=== PATIENT | female | born 1995 | race Caucasian/White ===

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

== ENCOUNTER 2017-09-24 09:27 | Emergency (ER) | payer BC, OTHER ==
[2017-09-24 10:49] VITALS: BP 102/63
--- NOTE | 2017-09-24 11:01 | UC ---
FLU HPI - HPI Summary HPI Summary: 1 DAY OF CHILLS, MYALGIAS, LAU. HAS MILD NASAL CONGESTION AND ST, DENIES COUGH OR FEVER. NO FLU SHOT THIS SEASON. - History of Current Complaint Chief Complaint: UCGeneralIllness Stated Complaint: FEVER/LAU Time Seen by Provider: 09/24/17 10:47 Hx Obtained From: Patient Hx Last Menstrual Period: unknown, iud Onset/Duration: Gradual Onset, Lasting Hours Severity Currently: Moderate Severity Initially: Moderate Pain Intensity: 6 Pain Scale Used: 0-10 Numeric Associated Signs & Symptoms: Positive: Myalgia, Sore Throat, Nasal Congestion, Headache. Negative: Fever, Cough - Allergy/Home Medications Allergies/Adverse Reactions: Allergies Allergy/AdvReac Type Severity Reaction Status Date / Time No Known Allergies Allergy Verified 09/24/17 10:46 PMH/Surg Hx/FS Hx/Imm Hx Previously Healthy: Yes - Surgical History Surgical History: Yes Surgery Procedure, Year, and Place: JAN 14 2016 - Family History Known Family History: Positive: Hypertension - Social History Alcohol Use: None Substance Use Type: None Smoking Status (MU): Never Smoked Tobacco Have You Smoked in the Last Year: No - Immunization History Most Recent Influenza Vaccination: declined Most Recent Tetanus Shot: 10/22/15 Most Recent Pneumonia Vaccination: never Vaccination Up to Date: Yes Review of Systems Constitutional: Chills, Fatigue ENT: Sore Throat, Nasal Discharge Respiratory: Negative Cardiovascular: Negative Gastrointestinal: Negative Musculoskeletal: Myalgia Neurological: Headache All Other Systems Reviewed And Are Negative: Yes Physical Exam Triage Information Reviewed: Yes Appearance: Well-Appearing, No Pain Distress, Well-Nourished Vital Signs: Initial Vital Signs Temp 98.3 F 09/24/17 10:44 Pulse 78 09/24/17 10:44 Resp 16 09/24/17 10:44 BP 102/63 09/24/17 10:44 Pulse Ox 98 09/24/17 10:44 Vital Signs Reviewed: Yes Eyes: Positive: Conjunctiva Clear ENT: Positive: Hearing grossly normal, Pharynx normal, TMs normal Neck: Positive: Supple, Nontender, Enlarged Nodes @ - SHOTTY NON TENDER SPFL CERVICAL LAD Respiratory Exam: Normal Cardiovascular Exam: Normal Abdomen Description: Positive: Nontender, Soft Musculoskeletal: Positive: No Edema Neurological: Positive: Alert Psychological: Positive: Normal Response To Family, Age Appropriate Behavior Skin: Negative: rashes Diagnostics - Laboratory Diagnostic Studies Completed/Ordered: INFLUENZA A POSITIVE Flu Course/Dx - Differential Dx/Diagnosis Provider Diagnoses: INFLUENZA A Discharge - Discharge Plan Condition: Stable Disposition: HOME Prescriptions: Oseltamivir CAP* [Tamiflu CAP*] 75 mg PO BID #10 cap Patient Education Materials: Influenza (ED) Forms: *Work Release Referrals: Juliana Milan MD [Primary Care Provider] - If Needed Additional Instructions: SWAB POSITIVE FOR INFLUENZA A. TAMIFLU TWICE DAILY FOR 5 DAYS. OTC MEDS NEEDED FOR FEVER, BODY ACHES. STAY WELL HYDRATED AND RESTED. SEEK FOLLOW-UP IF YOU ARE NOT IMPROVING EXPECTED.
== END 2017-09-24 11:41 | disposition home or self-care (01) ==
LOC: UCCORT 09:27
DX: J09.X2 Influenza due to identified novel influenza A virus with other respiratory manifestations (principal)
CPT/HCPCS: 87502; 99212; G0463

== ENCOUNTER 2017-12-18 19:14 | Emergency (ER) | payer SELFPAY ==
[2017-12-18 20:11] VITALS: BP 100/67
--- NOTE | 2017-12-18 21:07 | UC ---
Complaint Female HPI - HPI Summary HPI Summary: 22 y/o female presents to the urgent care c/o itchiness in her groin area w/ a mild vaginal discharge for the past 2 weeks. Pt is very concerned since she had unprotected sexual intercourse lately. She is "feeling paranoid about it ".LMP: 02/2017 w/ the IUD. She has Hx of chlamydia in 08/2017 which resolved w/ treatment. Pt denies fever, pelvic pain, lower back pain, urinary symptoms. Pt has not taking anything to alleviate symptoms. - History Of Current Complaint Chief Complaint: UCGU Stated Complaint: PERSONAL Time Seen by Provider: 12/18/17 21:02 Hx Obtained From: Patient Hx Last Menstrual Period: no period - states mirena Onset/Duration: Gradual Onset, Lasting Weeks - 2 weeks, Still Present, Worse Since - yesterday Timing: Intermittent, Lasting Seconds Severity Initially: Mild Severity Currently: Mild Pain Intensity: 4 Pain Scale Used: 0-10 Numeric Character: Burning Aggravating Factor(s): Lucien, Urination Alleviating Factor(s): Nothing Associated Signs And Symptoms: Positive: Vaginal Discharge. Negative: Fever, Back Pain, Genital Swelling, Genital Blisters Related Hx: Prior STD Hx - chlamydia in 08/2017 - Risk Factors Ectopic Risk Factor: Negative - Allergies/Home Medications Allergies/Adverse Reactions: Allergies Allergy/AdvReac Type Severity Reaction Status Date / Time No Known Allergies Allergy Verified 12/18/17 20:02 Home Medications: Home Medications Ibuprofen TAB* [Motrin TAB* 800 MG] 800 mg PO ONCE 12/18/17 [History Confirmed 12/18/17] PMH/Surg Hx/FS Hx/Imm Hx - Additional Past Medical History Additional PMH: Hx of chlamydia Previously Healthy: Yes - Pt denies PMHX - Surgical History Surgical History: Yes Surgery Procedure, Year, and Place: JAN 14 2016 - Family History Known Family History: Positive: Hypertension, Diabetes - Social History Occupation: Employed Full-time Lives: With Family Alcohol Use: None Substance Use Type: None Smoking Status (MU): Never Smoked Tobacco Have You Smoked in the Last Year: No - Immunization History Most Recent Influenza Vaccination: declined Most Recent Tetanus Shot: 10/22/15 Most Recent Pneumonia Vaccination: never Vaccination Up to Date: Yes Review of Systems Constitutional: Negative Skin: Negative Eyes: Negative ENT: Negative Respiratory: Negative Cardiovascular: Negative Gastrointestinal: Negative Genitourinary: Vaginal/Penile Itching, Vaginal/Penile Discharge Motor: Negative Neurovascular: Negative Musculoskeletal: Negative Neurological: Negative Psychological: Negative Is Patient Immunocompromised?: No All Other Systems Reviewed And Are Negative: Yes Physical Exam - Summary Physical Exam Summary: Vital signs: reviewed General: well developed, well nourished female adolescent sitting in the examining table w/o any acute distress. Head: Normocephalic, no lesions. Eyes: PERRLA, EOM's full, conjunctiva clear, fundi grossly normal. Ears: EAC's clear, TM's normal. Nose: Mucosa normal, no obstruction. Throat: Clear, no exudates, no lesions. Neck: Supple, no masses, no thyromegaly, no bruits. Chest: Lungs clear, no rales, no rhonchi, no wheezes. Heart: RR, no murmurs, no rubs, no gallops. Abdomen: Soft, no tenderness, no masses, BS normal. : Normal, no lesions, no discharge, no hernias noted. Pelvic: I was assited by Nurse Agata. External genitalia within normal limits. There is no lesions there is no masses noted. Speculum exam: The vaginal emery are within normal limits w/ white vaginal discharge and fishy odor, no the lesions or rashes. The cervix is closed with the string of IUD coming out and in place, mild erythema aorund cervical OS. There is no CMT's, and no adnexal masses. Sample sent to Lab for G/C and Affirm panel. Rectal: No lesions, no hemorrhoids, Back: Normal curvature, no tenderness. Extremities: FROM, no deformities, no edema, no erythema. Neuro: Physiological, no localizing findings. Skin: Normal, no rashes, no lesions noted. Triage Information Reviewed: Yes Vital Signs: Initial Vital Signs Temp 98.6 F 12/18/17 20:04 Pulse 64 12/18/17 20:04 Resp 20 12/18/17 20:04 BP 100/67 12/18/17 20:04 Pulse Ox 100 12/18/17 20:04 Complaint Female Dx - Course Course Of Treatment: 22 y/o female presents to the urgent care c/o itchiness in her groin area w/ a mild vaginal discharge for the past 2 weeks. Pt is very concerned since she had unprotected sexual intercourse lately. She is "feeling paranoid about it".LMP: 02/2017 w/ the IUD. She has Hx of chlamydia in 08/2017 which resolved w/ treatment. Pt denies fever, pelvic pain, lower back pain, urinary symptoms. Pt has not taking anything to alleviate symptoms.Hx obtained. Pt with Bacterial vaginosis on pelvic examination. UA ordered, result :trace blood. test: negative.Pt received Prophylactic treatment for GC /chlamydia. Pt tolerated well medications. Pt educated on STD's and the importance to use condoms. Pt Rx Metronidazole vaginal cream. Pt Advised to f/ u with [facility] for PAP. Specimen were sent to lab, Advised she will be notified if any abnormal result from lab. Pt understood and agreed with plan of care. - Differential Dx/Diagnosis Differential Diagnosis/HQI/PQRI: Cervicitis, Pelvic Inflammatory Disease, , Renal Colic, Sexually Transmitted Disease, Ureteral Stone, Urinary Tract Infection Provider Diagnoses: 1- Bacterail vaginosis. 2- Screening for STD's Discharge - Sign-Out/Discharge Documenting (check all that apply): Discharge - Discharge Plan Condition: Stable Disposition: HOME Prescriptions: metroNIDAZOLE VAGINAL 0.75%* 1 applic VAGINAL BEDTIME #1 angela Patient Education Materials: Bacterial Vaginosis (ED), Sexually Transmitted Diseases (ED) Referrals: Juliana Milan MD [Primary Care Provider] - 3 Days Additional Instructions: 1-Please f/u with [facility] for a PAP as soon as possible. 2- Please take medications as directed. Avoid sexual intercourse while applying medication. Please encourage the use of condoms. 3- Specimen were sent to lab, if anything abnormal you will receive a call from us for further treatment. You were treated today prophylactically for STD's 4-If not improvement of symptoms please return to the urgent care or f/u with your [facility] for further treatment - Billing Disposition and Condition Condition: STABLE Disposition: HOME
[2017-12-18] MEDS ORDERED: cefTRIAXone VIAL(*) 250 MG VIAL IM ONE (21:22)
[2017-12-18] MEDS ORDERED: Azithromycin TAB* 250 MG PO ONE (21:22)
[2017-12-18] MEDS ORDERED: Lidocaine 1% MPF* 2 ML VIAL ONE (21:37)
--- NOTE | 2017-12-20 15:09 | UC ---
- Progress Note Progress Note: Pt with + Gardnerella Pt prescribed Flagyl No change Gusj 12/20/2017 Discharge - Sign-Out/Discharge Documenting (check all that apply): Discharge/Admit/Transfer - Discharge Plan Condition: Stable Disposition: HOME Prescriptions: metroNIDAZOLE VAGINAL 0.75%* 1 applic VAGINAL BEDTIME #1 angela Patient Education Materials: Bacterial Vaginosis (ED), Sexually Transmitted Diseases (ED) Referrals: Juliana Milan MD [Primary Care Provider] - 3 Days Additional Instructions: 1-Please f/u with INPATIENT NURSING AIDE for a PAP as soon as possible. 2- Please take medications as directed. Avoid sexual intercourse while applying medication. Please encourage the use of condoms. 3- Specimen were sent to lab, if anything abnormal you will receive a call from us for further treatment. You were treated today prophylactically for STD's 4-If not improvement of symptoms please return to the urgent care or f/u with your INPATIENT NURSING AIDE for further treatment - Billing Disposition and Condition Condition: STABLE Disposition: HOME
== END 2017-12-18 22:04 | disposition home or self-care (01) ==
LOC: UCEAST 19:14
DX: N76.0 Acute vaginitis (principal); Z32.02 Encounter for pregnancy test, result negative; Z11.3 Encounter for screening for infections with a predominantly sexual mode of transmission; Z11.4 Encounter for screening for human immunodeficiency virus [HIV]; Z86.19 Personal history of other infectious and parasitic diseases
CPT/HCPCS: 36415; 81003; 81025; 84702; 86703; 87480; 87491; 87510; 87591; 87661; 96372; 99213; A9270-GY; G0463; J0696

== ENCOUNTER 2018-03-03 09:21 | Emergency (ER) | payer OTHER ==
[2018-03-03 10:20] VITALS: BP 112/84
[2018-03-03] MEDS ORDERED: cefTRIAXone VIAL(*) 250 MG VIAL IM ONE (11:08)
[2018-03-03] MEDS ORDERED: Azithromycin TAB* 250 MG PO ONE (11:08)
[2018-03-03] MEDS ORDERED: Lidocaine 1%* 5 ML VIAL ONE (11:15)
--- NOTE | 2018-03-03 12:05 | UC ---
Sonido Martinez Rebecca, scribed for Rigo Azevedo MD on 03/03/18 at 1033 . Complaint Female HPI - HPI Summary HPI Summary: Pt is a 22 y/o F who presents to [facility] c/o vaginal discharge and malodor. Discharge has been present for about 2 weeks with malodor starting yesterday. Additionally c/o mild dysuria and notes vaginal pruritis which is now resolved. Treated symptoms with MoniStat 1 week ago which slightly helped. Denies hematuria, N/V, back pain, fever. Is sexually active with no new partners, PMHx chlamydia which was treated. Has had yeast infections and BV in the past, with current symptoms being similar to those she had with BV. - History Of Current Complaint Chief Complaint: UCGU Stated Complaint: PERSONAL ISSUE Time Seen by Provider: 03/03/18 10:25 Hx Obtained From: Patient Hx Last Menstrual Period: pt has an IUD and states not getting a menses Onset/Duration: Lasting Weeks - 2 weeks, Still Present Severity Currently: None Pain Intensity: 0 Pain Scale Used: 0-10 Numeric Aggravating Factor(s): Nothing Alleviating Factor(s): Nothing Associated Signs And Symptoms: Positive: Vaginal Discharge. Negative: Fever, Back Pain Related Hx: Similar Episode/Dx as: - Dx of BV - Allergies/Home Medications Allergies/Adverse Reactions: Allergies Allergy/AdvReac Type Severity Reaction Status Date / Time No Known Allergies Allergy Verified 03/03/18 10:20 Home Medications: Home Medications Aviane 1 tab PO DAILY 03/03/18 [History Confirmed 03/03/18] PMH/Surg Hx/FS Hx/Imm Hx - Additional Past Medical History Additional PMH: NEGATIVE PMHx: DM Psychological History: Depression - Surgical History Surgical History: Yes Surgery Procedure, Year, and Place: - Family History Known Family History: Positive: Hypertension, Diabetes - Social History Alcohol Use: None Substance Use Type: None Smoking Status (MU): Never Smoked Tobacco Have You Smoked in the Last Year: No - Immunization History Most Recent Influenza Vaccination: declined Most Recent Tetanus Shot: 10/22/15 Most Recent Pneumonia Vaccination: never Vaccination Up to Date: Yes Review of Systems Constitutional: Negative Skin: Negative Eyes: Negative ENT: Negative Respiratory: Negative Cardiovascular: Negative Gastrointestinal: Negative Genitourinary: Dysuria, Vaginal/Penile Itching - Resolved, Vaginal/Penile Discharge - Discharge, Other - Vaginal malodor Motor: Negative Neurovascular: Negative Musculoskeletal: Negative Neurological: Negative Psychological: Negative All Other Systems Reviewed And Are Negative: Yes - Comments Additional Review of Systems Comments: NEGATIVE: Hematuria, N/V, back pain, fever Physical Exam - Summary Physical Exam Summary: Appearance: Well appearing, no pain distress Skin: warm, dry, reflects adequate perfusion Head/face: normal Eyes: EOMI, RENNY ENT: normal Neck: supple, non-tender Respiratory: CTA, breath sounds present Cardiovascular: RRR, pulses symmetrical Abdomen: non-tender, soft Bowel Sounds: present Musculoskeletal: normal, strength/ROM intact Neuro: normal, sensory motor intact, A&Ox3 Pelvic: no external lesions, IUD wires present, light white discharge with no yellowing Scribe was superintendent automotive for pelvic examination. Triage Information Reviewed: Yes Vital Signs: Initial Vital Signs Temp 98.2 F 03/03/18 10:12 Pulse 64 03/03/18 10:12 Resp 16 03/03/18 10:12 BP 112/84 03/03/18 10:12 Pulse Ox 100 03/03/18 10:12 Vital Signs Reviewed: Yes Complaint Female Dx - Course Course Of Treatment: Vaginal discharge and itching in a sexually active female with history of STDs in the past. Discharges yellow-white in nature. She has no cervical motion tenderness or external lesions. Testing for GC/chlamydia, Trichomonas, yeast and BV were all performed. Treated prophylactically for GC/ chlamydia. - Differential Dx/Diagnosis Provider Diagnoses: Vaginitis Discharge - Sign-Out/Discharge Documenting (check all that apply): Discharge/Admit/Transfer - Discharge - Discharge Plan Condition: Good Disposition: HOME Patient Education Materials: Vaginitis (ED) Referrals: Juliana Milan MD [Primary Care Provider] - Additional Instructions: Testing will take about 4 days to come back. We will call you with the results. If he does not hear from us you can call. Return with fever, belly pain, new symptoms or other concerns. Avoid sexual intercourse for one week or until instructed otherwise. - Billing Disposition and Condition Condition: GOOD Disposition: Home The documentation as recorded by the Sonido bartlett Rebecca accurately reflects the service I personally performed and the decisions made by me, Rigo Azevedo MD.
== END 2018-03-03 11:40 | disposition home or self-care (01) ==
LOC: UCEAST 09:21
DX: N76.0 Acute vaginitis (principal); R30.0 Dysuria; Z97.5 Presence of (intrauterine) contraceptive device; F32.9 Major depressive disorder, single episode, unspecified; Z82.49 Family history of ischemic heart disease and other diseases of the circulatory system; Z83.3 Family history of diabetes mellitus
CPT/HCPCS: 87480; 87491; 87510; 87591; 87661; 96372; 99212; A9270-GY; G0463; J0696

== ENCOUNTER 2019-01-15 14:24 | Emergency (ER) | payer SELFPAY ==
--- NOTE | 2019-01-15 14:34 | UC ---
Shortness of Breath HPI - HPI Summary HPI Summary: Patient is a 23year old female, who present today to the urgent care with intermittent shortness of breath for past 2 weeks. She reports that she feels a pressure-like sensation and finds it difficult to breathe in and please out, last a few minutes and occurs almost daily. She has been having this similar episodes over few years now and it's much worse for the past 2 weeks. She does have a history of anxiety and depression and sometimes feels it could be from her anxiety. She has been stressed at work and in the process of switching jobs.. She has been on antianxiety medications but since it did not help stop and is not currently taking any medications. She has an appointment for that with her primary care doctor tomorrow. She also reports noticing a painful lump the right lower neck area for past 1 week, has some discomfort with swallowing food. She denies any changes in appetite, weight loss and feeling hot or cold. No sick contacts . Denies any fever, chills, cough, chest pain or shortness of breath . No diaphoresis. Denies any abdominal pain , nausea or vomiting , diarrhea or constipation. She does not have any shortness of breath right now and wants to get evaluated - History of Current Complaint Stated Complaint: SHORTNESS OF BREATH Time Seen by Provider: 01/15/19 14:30 Hx Obtained From: Patient Hx Last Menstrual Period: pt has an IUD and states not getting a menses ?: No - Allergy/Home Medications Allergies/Adverse Reactions: Allergies Allergy/AdvReac Type Severity Reaction Status Date / Time No Known Allergies Allergy Verified 01/15/19 14:47 PMH/Surg Hx/FS Hx/Imm Hx - Additional Past Medical History Additional PMH: Past Medical History : anxiety/depression, not on any meds Past Surgical History: Family History : noncontributory Social History : Occasional alcohol, non smoker, no drug use. works at [employer] and at [employer]. Previously Healthy: Yes - Surgical History Surgical History: Yes Surgery Procedure, Year, and Place: - Family History Known Family History: Positive: Hypertension, Diabetes - Social History Alcohol Use: None Substance Use Type: None Smoking Status (MU): Never Smoked Tobacco Have You Smoked in the Last Year: No - Immunization History Most Recent Influenza Vaccination: declined Most Recent Tetanus Shot: 10/22/15 Most Recent Pneumonia Vaccination: never Vaccination Up to Date: Yes Review of Systems All Other Systems Reviewed And Are Negative: Yes Constitutional: Positive: Negative Skin: Positive: Negative Eyes: Positive: Negative ENT: Positive: Other - lump in the right lower neck. Negative: Sore Throat, Ear Ache Respiratory: Positive: Shortness Of Breath. Negative: Cough Cardiovascular: Positive: Negative. Negative: Chest Pain Gastrointestinal: Positive: Negative Genitourinary: Positive: Negative Motor: Positive: Negative Neurovascular: Positive: Negative Musculoskeletal: Positive: Negative Neurological: Positive: Negative Psychological: Positive: Negative Is Patient Immunocompromised?: No Physical Exam - Summary Physical Exam Summary: Physical Exam: Const: Appears well. No signs of apparent distress present. Alert and oriented x 3. Musculo: Walks with a normal gait. Head/Face: Atraumatic, normocephalic on inspection. Eyes: EOMI and PERRLA in both eyes. Conjunctivae clear. No discharge noted ENT: Hearing normal, TM normal appearing on the right and wax noted on the left side. No tenderness to palpation on maxillary and frontal sinus. No pharyngeal erythema or exudates . Uvula is midline. No cervical or submandibular lymphadenopathy noted. There is slightly tender and enlarged nodule in the right lower neck. Respiratory: Respirations are unlabored. Lungs clear to auscultation bilaterally, no wheezing , rhonchi or rales noted . CVS: Regular rate and Rhythm, S1S2 normal , no murmurs identified. Extremities: Peripheral circulation is grossly normal. Pulses 2+ Abdomen : Soft non tender , nondistended , Bowel sounds present . No guarding , rebound tenderness or rigidity noted. Skin: No lesions or rash located on the upper extremities or on the lower extremities. Neuro: Cranial nerves II to XII intact, motor and sensory intact. DTR Intact bilaterally. Mood is normal. Affect is normal. Triage Information Reviewed: Yes Vital Signs Reviewed: Yes Diagnostics - EKG Cardiac Rate: NL Cardiac Rhythm: Sinus: Normal Ectopy: None ST Segment: Normal Summary of EKG Findings: EKG :normal sinus rhythm at heart rate of 82, sinus arrhythmia, normal NE and normal QRS interval, no ST changes. T wave inversion noted in V1. Shortness of Breath Dx - Course Course Of Treatment: During the visit today, we obtained EKG :normal sinus rhythm at heart rate of 82, sinus arrhythmia, normal NE and normal QRS interval, no ST changes. T wave inversion noted in V1. Her symptoms appear to be secondary to stress related to her work and prior history of anxiety with exacerbation of symptoms. She does have slight enlargement of the thyroid possibly . We discussed further treatment options and alternatives including evaluation of her neck lump with ultrasound and she would prefer to go to the ER for further evaluation. We don't have ultrasound available here. We discussed that she has an appointment with her primary care doctor tomorrow and that can be done there but she does not want to wait at this time and preferred to get the thyroid testing and the ultrasound for her neck today. Patient needs additional testing, thus ER transfer advised and patient agrees. Report called to the ER provider(JN Gomez) at [facility], advised provider of the history, physical examination, and duration of illness. Patient will drive to the ER and keep her appointment with primary care doctor tomorrow - Differential Dx/Diagnosis Provider Diagnosis: Anxiety, Localized swelling, mass and lump, neck Discharge - Sign-Out/Discharge Documenting (check all that apply): Patient Departure All imaging exams completed and their final reports reviewed: No Studies - Discharge Plan Condition: Stable Disposition: HOME-RECOMMEND TO ED Patient Education Materials: Anxiety (ED) Referrals: Juliana Milan MD [Primary Care Provider] - 1 Day Additional Instructions: Patient needs additional testing, thus ER transfer advised and patient agrees. Report called to the ER provider(JN Gomez) at [facility], advised provider of the history, physical examination, and duration of illness. Patient will drive to the ER and keep her appointment with primary care doctor tomorrow Return to Urgent care / ER if symptoms get worse. - Billing Disposition and Condition Condition: STABLE Disposition: Home-Recommend to ED
[2019-01-15 14:47] VITALS: BP 132/88
== END 2019-01-15 15:30 | disposition home health service (06) ==
LOC: UCEAST 14:24
DX: F41.9 Anxiety disorder, unspecified (principal); R22.1 Localized swelling, mass and lump, neck; R06.02 Shortness of breath
CPT/HCPCS: 99212; G0463

== ENCOUNTER 2019-01-15 16:34 | Emergency (ER) | payer SELFPAY ==
[2019-01-15 17:53] LABS: ABS Eosinophils 0.1 10^3/ul (0-0.6); ABS Monocytes 0.6 10^3/ul (0-0.8); ABS Neutrophils 3.5 10^3/ul (1.5-7.7); Eosinophil % 2.1 %; Hematocrit 43 % (35-47); Hemoglobin 14.3 g/dL (12.0-16.0); Lymphocyte % 32.2 %; Mean Corpuscular HGB Conc 33 g/dL (31-36); Mean Corpuscular Hemoglobin 29 pg (27-31); Mean Corpuscular Volume 88 fL (80-97); Mean Platelet Volume 7.6 fL (7.4-10.4); Platelet Count 211 10^3/uL (150-450); Red Blood Count 4.89 10^6 /uL (3.70-4.87); Red Cell Distribution Width 14 % (10.5-15); White Blood Count 6.3 10^3/uL (3.5-10.8)
[2019-01-15 18:11] LABS: BUN/Creatinine Ratio 20.6 (8-20); Calcium 9.7 mg/dL (8.6-10.3); EGFR African American 132.2 (>60); EGFR Non-African American 109.2 (>60); Potassium 3.8 mmol/L (3.5-5.0)
[2019-01-15 18:45] LABS: TSH (Thyroid Stimulating Horm) 0.7 mcIU/mL (0.34-5.60)
[2019-01-15 18:47] LABS: Free T4 0.83 ng/dL (0.61-1.12)
--- NOTE | 2019-01-15 20:30 | ED ---
Throat Pain/Nasal Congestion - HPI Summary HPI Summary: Patient complains of pain at lateral right side neck 5 days. Patient tolerating secretions, eating and drinking normally. Denies oropharyngeal pain , cough, fever, CP, SOB, N/V/D, abdominal pain, change in urine, change in BM. Medical history is none. - History of Current Complaint Chief Complaint: EDThroatPain Time Seen by Provider: 01/15/19 17:39 Hx Obtained From: Patient Onset/Duration: Gradual Onset, Lasting Days Severity: Moderate Associated Signs And Symptoms: Positive: Negative Cough: None - Allergies/Home Medications Allergies/Adverse Reactions: Allergies Allergy/AdvReac Type Severity Reaction Status Date / Time No Known Allergies Allergy Verified 01/15/19 14:47 PMH/Surg Hx/FS Hx/Imm Hx Endocrine/Hematology History: Denies: Hx Diabetes, Hx Thyroid Disease Cardiovascular History: Denies: Hx Hypertension Respiratory History: Denies: Hx Asthma, Hx Chronic Obstructive Pulmonary Disease (COPD) GI History: Denies: Hx Ulcer History: Denies: Hx Renal Disease Sensory History: Denies: Hx Eye Prosthesis Opthamlomology History: Denies: Hx Legally Blind EENT History: Denies: Hx Deafness Neurological History: Denies: Hx Dementia Psychiatric History: Denies: Hx Autism - Surgical History Surgery Procedure, Year, and Place: Infectious Disease History: No Infectious Disease History: Denies: Hx Clostridium Difficile, Hx Hepatitis, Hx Human Immunodeficiency Virus (HIV), Hx of Known/Suspected MRSA, Hx Shingles, Hx Tuberculosis, Hx Known/ Suspected VRE, Hx Known/Suspected VRSA, History Other Infectious Disease, Traveled Outside the [place] in Last 30 Days - Family History Known Family History: Positive: Hypertension, Diabetes - Social History Alcohol Use: None Substance Use Type: Reports: None Hx Tobacco Use: No Smoking Status (MU): Never Smoked Tobacco Have You Smoked in the Last Year: No Review of Systems Constitutional: Negative Eyes: Negative ENT: Negative Cardiovascular: Negative Respiratory: Negative Gastrointestinal: Negative Genitourinary: Negative Musculoskeletal: Negative Skin: Negative Neurological: Negative Psychological: Normal All Other Systems Reviewed And Are Negative: Yes Physical Exam - Summary Physical Exam Summary: ENT exam unremarkable. Mild tenderness to palpation to right side anterior neck lateral to mid point of trachea. No obvious erythema, ecchymosis, swelling , deformity, mass noted on physical exam of neck. Neck supple, full range of motion. Full range of motion of jaw. Lung sounds clear to auscultation bilaterally. Triage Information Reviewed: Yes Vital Signs On Initial Exam: Initial Vitals Temp Pulse Resp BP Pulse Ox 98.8 F 106 18 128/72 98 01/15/19 16:37 01/15/19 16:37 01/15/19 16:37 01/15/19 16:37 01/15/19 16:37 Vital Signs Reviewed: Yes Appearance: Positive: Well-Appearing Skin: Positive: Warm Head/Face: Positive: Normal Head/Face Inspection Eyes: Positive: Normal ENT: Positive: Normal ENT inspection Neck: Positive: Supple Respiratory/Lung Sounds: Positive: Clear to Auscultation Cardiovascular: Positive: Normal Abdomen Description: Positive: Nontender Musculoskeletal: Positive: Normal Neurological: Positive: Normal Psychiatric: Positive: Normal AVPU Assessment: Alert - Joey Coma Scale Best Eye Response: 4 - Spontaneous Best Motor Response: 6 - Obeys Commands Best Verbal Response: 5 - Oriented Coma Scale Total: 15 Diagnostics - Vital Signs Vital Signs Temp Pulse Resp BP Pulse Ox 01/15/19 19:08 99.0 F 94 16 105/60 99 01/15/19 16:37 98.8 F 106 18 128/72 98 - Laboratory Lab Results: Lab Results 01/15/19 01/15/19 Range/Units 17:45 17:45 WBC 6.3 (3.5-10.8) 10^3/uL RBC 4.89 H (3.70-4.87) 10^6 /uL Hgb 14.3 (12.0-16.0) g/dL Hct 43 (35-47) % MCV 88 (80-97) fL MCH 29 (27-31) pg MCHC 33 (31-36) g/dL RDW 14 (10.5-15) % Plt Count 211 (150-450) 10^3/uL MPV 7.6 (7.4-10.4) fL Neut % (Auto) 55.3 % Lymph % (Auto) 32.2 % [place] % (Auto) 10.0 % Eos % (Auto) 2.1 % Baso % (Auto) 0.4 % Absolute Neuts (auto) 3.5 (1.5-7.7) 10^3/ul Absolute Lymphs (auto) 2.0 (1.0-4.8) 10^3/ul Absolute Monos (auto) 0.6 (0-0.8) 10^3/ul Absolute Eos (auto) 0.1 (0-0.6) 10^3/ul Absolute Basos (auto) 0.0 (0-0.2) 10^3/ul Absolute Nucleated RBC 0.0 10^3/ul Nucleated RBC % 0.0 Sodium 140 (135-145) mmol/L Potassium 3.8 (3.5-5.0) mmol/L Chloride 106 (101-111) mmol/L Carbon Dioxide 28 (22-32) mmol/L Anion Gap 6 (2-11) mmol/L BUN 14 (6-24) mg/dL Creatinine 0.68 (0.51-0.95) mg/dL Est GFR ( Amer) 132.2 (>60) Est GFR (Non-Af Amer) 109.2 (>60) BUN/Creatinine Ratio 20.6 H (8-20) Glucose 110 H (70-100) mg/dL Calcium 9.7 (8.6-10.3) mg/dL TSH 0.70 (0.34-5.60) mcIU/mL Free T4 0.83 (0.61-1.12) ng/dL Result Diagrams: 01/15/19 17:45 01/15/19 17:45 Lab Statement: Any lab studies that have been ordered have been reviewed, and results considered in the medical decision making process. EENT Course/Dx - Course Course Of Treatment: Patient complains of pain at lateral right side neck 5 days. Patient tolerating secretions, eating and drinking normally. Denies oropharyngeal pain, cough, fever, CP, SOB, N/V/D, abdominal pain, change in urine, change in BM. Medical history is none. Physical exam:ENT exam unremarkable. Mild tenderness to palpation to right side anterior neck lateral to mid point of trachea. No obvious erythema, ecchymosis, swelling, deformity, mass noted on physical exam of neck. Neck supple, full range of motion. Full range of motion of jaw. Lung sounds clear to auscultation bilaterally. Vital signs within normal limits. Labs unremarkable. TSH and free T4 within normal limits. Ultrasound soft tissue neck positive for cystic thyroid nodule with no follow-up recommended. Patient will be advised to follow-up with primary care. - Diagnoses Provider Diagnoses: Thyroid nodule Discharge - Sign-Out/Discharge Documenting (check all that apply): Patient Departure Patient Received Moderate/Deep Sedation with Procedure: No - Discharge Plan Condition: Stable Disposition: HOME Patient Education Materials: Thyroid Nodules (ED) Referrals: Juliana Milan MD [Primary Care Provider] - Additional Instructions: Follow-up with primary care. Return to the ED for any new or worsening symptoms. - Billing Disposition and Condition Condition: STABLE Disposition: Home
--- NOTE | 2019-01-15 20:30 | ED ---
HPI Chest Pain - History of Current Complaint Chief Complaint: EDThroatPain Time Seen by Provider: 01/15/19 17:39 Hx Last Menstrual Period: pt has an IUD and states not getting a menses Pain Intensity: 5 - Additional Pertinent History Primary Care Physician: Eugenio OB - Allergy/Home Medications Allergies/Adverse Reactions: Allergies Allergy/AdvReac Type Severity Reaction Status Date / Time No Known Allergies Allergy Verified 01/15/19 14:47 PMH/Surg Hx/FS Hx/Imm Hx Endocrine/Hematology History: Denies: Hx Diabetes, Hx Thyroid Disease Cardiovascular History: Denies: Hx Hypertension Respiratory History: Denies: Hx Asthma, Hx Chronic Obstructive Pulmonary Disease (COPD) GI History: Denies: Hx Ulcer History: Denies: Hx Renal Disease - Surgical History Surgery Procedure, Year, and Place: Infectious Disease History: No Infectious Disease History: Denies: Hx Clostridium Difficile, Hx Hepatitis, Hx Human Immunodeficiency Virus (HIV), Hx of Known/Suspected MRSA, Hx Shingles, Hx Tuberculosis, Hx Known/ Suspected VRE, Hx Known/Suspected VRSA, History Other Infectious Disease, Traveled Outside the [place] in Last 30 Days - Family History Known Family History: Positive: Hypertension, Diabetes - Social History Alcohol Use: None Substance Use Type: Reports: None Hx Tobacco Use: No Smoking Status (MU): Never Smoked Tobacco Have You Smoked in the Last Year: No Physical Exam Vital Signs On Initial Exam: Initial Vitals Temp Pulse Resp BP Pulse Ox 98.8 F 106 18 128/72 98 01/15/19 16:37 01/15/19 16:37 01/15/19 16:37 01/15/19 16:37 01/15/19 16:37 Diagnostics - Vital Signs Vital Signs Temp Pulse Resp BP Pulse Ox 01/15/19 19:08 99.0 F 94 16 105/60 99 01/15/19 16:37 98.8 F 106 18 128/72 98 - Laboratory Lab Results: Lab Results 01/15/19 01/15/19 Range/Units 17:45 17:45 WBC 6.3 (3.5-10.8) 10^3/uL RBC 4.89 H (3.70-4.87) 10^6 /uL Hgb 14.3 (12.0-16.0) g/dL Hct 43 (35-47) % MCV 88 (80-97) fL MCH 29 (27-31) pg MCHC 33 (31-36) g/dL RDW 14 (10.5-15) % Plt Count 211 (150-450) 10^3/uL MPV 7.6 (7.4-10.4) fL Neut % (Auto) 55.3 % Lymph % (Auto) 32.2 % [place] % (Auto) 10.0 % Eos % (Auto) 2.1 % Baso % (Auto) 0.4 % Absolute Neuts (auto) 3.5 (1.5-7.7) 10^3/ul Absolute Lymphs (auto) 2.0 (1.0-4.8) 10^3/ul Absolute Monos (auto) 0.6 (0-0.8) 10^3/ul Absolute Eos (auto) 0.1 (0-0.6) 10^3/ul Absolute Basos (auto) 0.0 (0-0.2) 10^3/ul Absolute Nucleated RBC 0.0 10^3/ul Nucleated RBC % 0.0 Sodium 140 (135-145) mmol/L Potassium 3.8 (3.5-5.0) mmol/L Chloride 106 (101-111) mmol/L Carbon Dioxide 28 (22-32) mmol/L Anion Gap 6 (2-11) mmol/L BUN 14 (6-24) mg/dL Creatinine 0.68 (0.51-0.95) mg/dL Est GFR ( Amer) 132.2 (>60) Est GFR (Non-Af Amer) 109.2 (>60) BUN/Creatinine Ratio 20.6 H (8-20) Glucose 110 H (70-100) mg/dL Calcium 9.7 (8.6-10.3) mg/dL TSH 0.70 (0.34-5.60) mcIU/mL Free T4 0.83 (0.61-1.12) ng/dL Result Diagrams: 01/15/19 17:45 01/15/19 17:45 Lab Statement: Any lab studies that have been ordered have been reviewed, and results considered in the medical decision making process. Discharge - Discharge Plan Referrals: Juliana Milan MD [Primary Care Provider] -
[2019-01-15 21:47] VITALS: BP 116/69
== END 2019-01-15 21:49 | disposition home or self-care (01) ==
LOC: ED 16:34
DX: E04.1 Nontoxic single thyroid nodule (principal)
CPT/HCPCS: 36415; 76536; 80048; 84439; 84443; 85025; 99282

== ENCOUNTER 2019-03-27 14:20 | Emergency (ER) | payer SELFPAY ==
[2019-03-27 14:49] VITALS: BP 112/72
--- NOTE | 2019-03-27 15:26 | UC ---
Complaint Female HPI - HPI Summary HPI Summary: 24-year-old female presents with 3 day history of "yellowish", foul-smelling vaginal discharge. States she's had similar symptoms in the past and been diagnosed with BV. States she is in a monogamous relationship. Does not use barrier contraception. States she has a concern for possible STI however is asking to be tested for gonorrhea, chlamydia, and trichomonas at this time. She is declining testing for syphilis or HIV. Denies fever, chills, abdominal pain, nausea, vomiting, dysuria, frequency, urgency, hematuria, abnormal vaginal bleeding, or dyspareunia. - History Of Current Complaint Chief Complaint: UCGU Stated Complaint: PERSONAL Time Seen by Provider: 03/27/19 14:55 Hx Obtained From: Patient Hx Last Menstrual Period: "I haven't had one for a couple years because of the IUD." Pain Intensity: 0 - Allergies/Home Medications Allergies/Adverse Reactions: Allergies Allergy/AdvReac Type Severity Reaction Status Date / Time No Known Allergies Allergy Verified 03/27/19 14:46 PMH/Surg Hx/FS Hx/Imm Hx Previously Healthy: Yes - Denies significant PMH - Surgical History Surgical History: Yes Surgery Procedure, Year, and Place: , 2016, [place] - Family History Known Family History: Positive: Hypertension, Diabetes - Social History Occupation: Employed Full-time Lives: With Family Alcohol Use: Occasionally Substance Use Type: None Smoking Status (MU): Never Smoked Tobacco Have You Smoked in the Last Year: No - Immunization History Most Recent Influenza Vaccination: declined Most Recent Tetanus Shot: 10/22/15 Most Recent Pneumonia Vaccination: never Vaccination Up to Date: Yes Review of Systems All Other Systems Reviewed And Are Negative: Yes Constitutional: Negative: Fever, Chills Skin: Negative: Rash Respiratory: Positive: Negative Cardiovascular: Positive: Negative Gastrointestinal: Negative: Abdominal Pain, Vomiting, Diarrhea, Nausea Genitourinary: Positive: Vaginal/Penile Discharge. Negative: Dysuria, Hematuria , Frequency, Urgency, Abnormal Bleeding Musculoskeletal: Positive: Negative Neurological: Positive: Negative Is Patient Immunocompromised?: No Physical Exam - Summary Physical Exam Summary: GENERAL APPEARANCE: Well developed, well nourished, alert and cooperative, and appears to be in no acute distress. CARDIAC: Normal S1 and S2. No S3, S4 or murmurs. Rhythm is regular. There is no peripheral edema, cyanosis or pallor. Extremities are warm and well perfused. Capillary refill is less than 2 seconds. Peripheral pulses intact. LUNGS: Clear to auscultation without rales, rhonchi, wheezing or diminished breath sounds. ABDOMEN: Positive bowel sounds. Soft, nondistended, nontender. No guarding or rebound. No masses or hepatosplenomegally. No CVA tenderness. GENITOURINARY: Patient declined pelvic exam. MUSKULOSKELETAL: ROM intact to all extremities. No joint erythema or tenderness. Normal muscular development. Normal gait. SKIN: Skin normal color, texture and turgor with no lesions or eruptions. Triage Information Reviewed: Yes Vital Signs: Initial Vital Signs Temp 98.7 F 03/27/19 14:44 Pulse 75 03/27/19 14:44 Resp 13 03/27/19 14:44 BP 112/72 03/27/19 14:44 Pulse Ox 100 03/27/19 14:44 Vital Signs Reviewed: Yes Complaint Female Dx - Course Course Of Treatment: 24-year-old female presents with 3 day history of "yellowish", foul-smelling vaginal discharge. States she's had similar symptoms in the past and been diagnosed with BV. States she is in a monogamous relationship. Does not use barrier contraception. States she has a concern for possible STI however is asking to be tested for gonorrhea, chlamydia, and trichomonas at this time. She is declining testing for syphilis or HIV. Denies fever, chills, abdominal pain, nausea, vomiting, dysuria, frequency, urgency, hematuria, abnormal vaginal bleeding, or dyspareunia. Afebrile. Vital signs stable. Patient's exam was overall unremarkable. She declined a pelvic exam at this time. Specimens were collected for gonorrhea, chlamydia, bacterial vaginosis, Trichomonas, and vaginal yeast infection. We'll start her on MetroGel 1 applicator full intravaginally at bedtime 5 days to treat for presumed BV pending test results. She is to follow-up with her primary care provider in 3- 5 days if symptoms are not improving. Anticipatory guidance and warning symptoms were reviewed with the patient. Verbalizes understanding and agrees with plan of care. - Differential Dx/Diagnosis Differential Diagnosis/HQI/PQRI: Pelvic Inflammatory Disease, Sexually Transmitted Disease, Urinary Tract Infection Provider Diagnosis: Vaginal discharge Discharge - Sign-Out/Discharge Documenting (check all that apply): Patient Departure All imaging exams completed and their final reports reviewed: No Studies - Discharge Plan Condition: Stable Disposition: HOME Prescriptions: metroNIDAZOLE [Metronidazole 0.75 % gel] 1 applic TOPICAL DAILY 5 Days #1 gel Patient Education Materials: Vaginal Discharge (ED) Referrals: Juliana Milan MD [Primary Care Provider] - 3 Days Additional Instructions: We have performed testing for gonorrhea, chlamydia, bacterial vaginosis (BV), and vaginal yeast infections at your request. We will contact you if any of these tests indicate any further treatment. Start Metrogel for the treatment of BV. Insert 1 applicator full into the vagina at bedtime for 5 days. Follow-up with your primary care provider in 3-5 days if symptoms are not improving. Seek immediate medical attention in the emergency room if you develop a fever greater than 100.5 F, has severe abdominal pain, persistent or projectile vomiting, or any worsening of symptoms. - Billing Disposition and Condition Condition: STABLE Disposition: Home
[2019-03-28 11:50] LABS: Neisseria gonorrhoeae (GC) RNA Negative (Negative)
== END 2019-03-27 15:39 | disposition home or self-care (01) ==
LOC: UCCORT 14:20
DX: N89.8 Other specified noninflammatory disorders of vagina (principal); Z87.42 Personal history of other diseases of the female genital tract
CPT/HCPCS: 87480; 87491; 87510; 87591; 87660; 99212; G0463